=== PATIENT | male | born 1940 | race Caucasian/White ===

== ENCOUNTER → 2022-05-23 | Outpatient (CLI) | payer MEDICARE ==
[~2022-05-23] MED LIST: IOHEXOL 350 MG/ML 100ML INFUS..BTL IV ONE
== END | disposition home or self-care (01) ==
LOC: RAH 10:14
PROVIDERS: ATTEND Internal Medicine Medical Oncology
DX: C82.03 Follicular lymphoma grade I, intra-abdominal lymph nodes (principal); Z98.890 Other specified postprocedural states
CPT/HCPCS: 71260; 74177; Q9967

== ENCOUNTER 2022-10-22 10:30 | Emergency (ER) | payer MEDICARE ==
[~2022-10-22] VITALS: Ht 170.2 cm; Wt 59.0 kg
[2022-10-22] MEDS ORDERED: LIDOCAINE 5% TOPICAL PATCH TP ONE (13:39)
[2022-10-22] MEDS ORDERED: [UNRECOGNIZED DRUG - CODE] TP (14:04)
[2022-10-22 14:19] VITALS: BP 123/78
== END 2022-10-22 14:20 | disposition home or self-care (01) ==
LOC: EDH 10:30
DX: R07.81 Pleurodynia (principal); E78.00 Pure hypercholesterolemia, unspecified; Z88.0 Allergy status to penicillin; Z88.1 Allergy status to other antibiotic agents; Z98.890 Other specified postprocedural states; W18.39XA Other fall on same level, initial encounter; Y93.89 Activity, other specified; Y92.89 Other specified places as the place of occurrence of the external cause; Y99.8 Other external cause status
CPT/HCPCS: 71100